=== PATIENT | male | born 2000 | race Hispanic/Latino ===

== ENCOUNTER 2020-11-23 10:50 | Emergency (ER) | payer OTHER ==
[~2020-11-23] VITALS: Ht 170.2 cm; Wt 68.4 kg
[2020-11-23] MEDS ORDERED: diazePAM 10MG/2ML SYRINGE (J3360 PER 5MG) IM ONE (12:35)
[2020-11-23] MEDS ORDERED: METH-1165 PO (13:53)
[2020-11-23 14:10] VITALS: BP 124/82
== END 2020-11-23 14:12 | disposition home or self-care (01) ==
LOC: M ED 10:50
DX: M62.838 Other muscle spasm (principal)
CPT/HCPCS: 96372; 99283; J3360